=== PATIENT | female | born 1965 | race Caucasian/White ===

== ENCOUNTER 2021-11-12 14:00 | Outpatient (REF) | payer OTHER, SELFPAY ==
--- NOTE | ~2021-11-12 | MM_ITS ---
EXAMINATION: MM SCREENING DIGITAL BREAST TOMOSYNTHESIS, BILATERAL CLINICAL INFORMATION: Screening. Asymptomatic. The lifetime risk of breast cancer based on the Tyrer-Cuzick Model is 8%. COMPARISON: Mammography: 07/14/2019, 07/05/2018, 07/01/2017 TECHNIQUE: Digital breast tomosynthesis is performed in both the craniocaudal and mediolateral oblique views along with computer-aided detection (CAD). Synthesized 2D images are generated from the tomosynthesis. FINDINGS: There are scattered areas of fibroglandular density (ACR BI-RADS breast composition Category b). There are no significant masses, abnormal calcifications, or other abnormalities. Parenchymal pattern is similar to prior studies. There is no developing density or architectural abnormality. The axilla and skin contours are unremarkable. No significant changes. MM/MM tomosynthesis screening BI IMPRESSION: No mammographic evidence of malignancy. ASSESSMENT: BI-RADS 1: Negative RECOMMENDATION: Routine annual mammography screening. This patient's information was entered into a reminder system with a target due date for their next mammogram.
== END 2021-11-12 14:01 | disposition home or self-care (01) ==
LOC: HO.MAMMO 14:00
PROVIDERS: PCP Internal Medicine; Visit Provider Internal Medicine
DX: Z12.31 Encounter for screening mammogram for malignant neoplasm of breast (principal)
CPT/HCPCS: 77063; 77067

== ENCOUNTER 2022-01-29 07:24 | Outpatient (REF) | payer OTHER, SELFPAY ==
[2022-01-29 10:37] LABS: MANUAL DIFF FLAG NO
[2022-01-29 10:40] LABS: Basophils Absolute Auto 0.1 X10*3/uL (0.0-0.2); Basophils Percent Auto 0.9 % (0-2); Eosinophils Absolute Auto 0.5 X10*3/uL (0.0-0.4); Eosinophils Percent Auto 4.8 % (0-4); Hematocrit 41.6 % (37.0-47.0); Hemoglobin 13.4 g/dl (12.0-16.0); Imm Gran Abs Auto 0.03 X10*3/uL (0.00-0.03); Imm Gran Pct Auto 0.3 % (0.0-0.4); Lymphocytes Percent Auto 19.6 % (20-40); Mean Corpuscular HGB Conc 32.2 g/dl (31.0-35.0); Mean Corpuscular Hemoglobin 30.9 pg (27.0-33.0); Mean Corpuscular Volume 95.9 fL (80.0-98.0); Mean Platelet Volume 9.8 fL (9.4-12.3); Monocytes Absolute Auto 0.6 X10*3/uL (0.1-1.2); Monocytes Percent Auto 6.3 % (2-11); Neutrophils Absolute Auto 6.9 x10*3/uL (2.0-8.3); Neutrophils Percent Auto 68.1 % (45-73); Platelet Count 259 X10*3/uL (160-400); Red Blood Count 4.34 X10*6/uL (4.20-5.50); White Blood Count 10.1 X10*3/uL (4.8-10.8)
[2022-01-29 10:49] LABS: Alanine Aminotransferase 20 U/L (0-31); Albumin Level 4.4 g/dL (3.5-5.0); Alkaline Phosphatase 119 U/L (39-117); Anion Gap 11 (12-20); Aspartate Amino Transferase 21 U/L (5-31); Bilirubin Total 0.8 mg/dL (0.0-1.0); Blood Urea Nitrogen 14 mg/dL (9-16); Calcium 9.4 mg/dL (8.4-10.2); Carbon Dioxide 25 mmol/L (22-29); Chloride 108 mmol/L (96-108); Cholesterol 189 mg/dL; Estimated Glomerular Filt Rate > 60; Glucose Fasting 101 mg/dL (60-99); HDL Cholesterol 64 mg/dL; LDL Cholesterol Calculated 111 mg/dl; Potassium 4.4 mmol/L (3.3-5.1); Sodium 140 mmol/L (135-145); Total Protein 6.9 g/dL (6.5-8.0); Triglycerides 72 mg/dL
[2022-01-29 11:07] LABS: Appearance Urine CLEAR; Color Urine YELLOW; Glucose Urine UA NEG (NEG); Leukocyte Esterase Urine NEG (NEG); Nitrite Urine NEG (NEG); Urine Blood TRACE (NEG); Urine Ketones NEG (NEG); Urine Protein NEG (NEG-TRACE)
[2022-01-29 11:31] LABS: RBC Urine 0-2 /HPF (0); Squamous Epithelial Cell Urine TRACE /LPF; WBC Urine 0 /HPF (0-4)
== END 2022-01-29 07:25 | disposition home or self-care (01) ==
LOC: HO.WFDLDS 07:24
PROVIDERS: Visit Provider Internal Medicine
DX: Z00.00 Encounter for general adult medical examination without abnormal findings (principal); D72.820 Lymphocytosis (symptomatic); E78.00 Pure hypercholesterolemia, unspecified
CPT/HCPCS: 36415; 80053; 80061; 81001; 81003; 85025

== ENCOUNTER 2022-02-07 | Outpatient (REF) | payer OTHER, SELFPAY | END 2022-02-07 00:01 | disposition home or self-care (01) | LOC: HO.LNP | PROVIDERS: Visit Provider Internal Medicine | DX: Z13.89 Encounter for screening for other disorder (principal) ==

== ENCOUNTER 2022-11-18 13:41 | Outpatient (REF) | payer OTHER, SELFPAY ==
--- NOTE | ~2022-11-18 | MM_ITS ---
EXAMINATION: MM SCREENING DIGITAL BREAST TOMOSYNTHESIS, BILATERAL CLINICAL INFORMATION: Screening. Asymptomatic. The lifetime risk of breast cancer based on the Tyrer-Cuzick Model is 7%. COMPARISON: Mammography: 11/12/2021, 07/14/2019, 07/05/2018 TECHNIQUE: Digital breast tomosynthesis is performed in both the craniocaudal and mediolateral oblique views along with computer-aided detection (CAD). Synthesized 2D images are generated from the tomosynthesis. FINDINGS: There are scattered areas of fibroglandular density (ACR BI-RADS breast composition Category b). There are no significant masses, abnormal calcifications, or other abnormalities. No architectural abnormality or developing density or significant change from prior studies. The axilla are unremarkable. MM/MM tomosynthesis screening BI IMPRESSION: No mammographic evidence of malignancy. ASSESSMENT: BI-RADS 1: Negative RECOMMENDATION: Routine annual mammography screening. This patient's information was entered into a reminder system with a target due date for their next mammogram.
== END 2022-11-18 13:42 | disposition home or self-care (01) ==
LOC: HO.MAMMO 13:41
PROVIDERS: Visit Provider Internal Medicine
DX: Z12.31 Encounter for screening mammogram for malignant neoplasm of breast (principal)
CPT/HCPCS: 77063; 77067

== ENCOUNTER 2023-02-04 07:31 | Outpatient (REF) | payer OTHER, SELFPAY ==
[2023-02-04 10:46] LABS: MANUAL DIFF FLAG NO
[2023-02-04 10:55] LABS: Basophils Absolute Auto 0.1 X10*3/uL (0.0-0.2); Basophils Percent Auto 1.2 % (0-2); Eosinophils Absolute Auto 0.5 X10*3/uL (0.0-0.4); Eosinophils Percent Auto 5.3 % (0-4); Hematocrit 44.3 % (37.0-47.0); Hemoglobin 14.5 g/dl (12.0-16.0); Imm Gran Abs Auto 0.02 X10*3/uL (0.00-0.03); Imm Gran Pct Auto 0.2 % (0.0-0.4); Lymphocytes Absolute Auto 2.1 X10*3/uL (1.2-4.9); Lymphocytes Percent Auto 22.8 % (20-40); Mean Corpuscular HGB Conc 32.7 g/dl (31.0-35.0); Mean Corpuscular Hemoglobin 31.7 pg (27.0-33.0); Mean Corpuscular Volume 96.7 fL (80.0-98.0); Mean Platelet Volume 9.6 fL (9.4-12.3); Monocytes Absolute Auto 0.7 X10*3/uL (0.1-1.2); Monocytes Percent Auto 7.3 % (2-11); Neutrophils Absolute Auto 5.9 x10*3/uL (2.0-8.3); Neutrophils Percent Auto 63.2 % (45-73); Platelet Count 260 X10*3/uL (160-400); Red Blood Count 4.58 X10*6/uL (4.20-5.50); White Blood Count 9.4 X10*3/uL (4.8-10.8)
[2023-02-04 10:58] LABS: Appearance Urine Clear; Color Urine Yellow; Glucose Urine UA Negative (Negative); Leukocyte Esterase Urine Negative (Negative); Nitrite Urine Negative (Negative); PH 6.5 (5.0-9.0); Urine Blood Negative (Negative); Urine Ketones Negative (Negative); Urine Protein Negative (Neg-Trace)
[2023-02-04 11:00] LABS: Bacteria Urine None Seen (None Seen); Hyaline Casts Urine 0-2 /LPF (0-2); RBC Urine 0-2 /HPF (0-2); Squamous Epithelial Cell Urine 0-2 /HPF (0-2); WBC Urine 0-5 /HPF (0-5)
[2023-02-04 11:19] LABS: Alanine Aminotransferase 24 U/L (0-31); Albumin Level 4.5 g/dL (3.5-5.0); Alkaline Phosphatase 126 U/L (39-117); Anion Gap 12 (12-20); Aspartate Amino Transferase 26 U/L (5-31); Bilirubin Total 0.9 mg/dL (0.0-1.0); Blood Urea Nitrogen 20 mg/dL (9-16); Calcium 9.5 mg/dL (8.4-10.2); Carbon Dioxide 28 mmol/L (22-29); Chloride 107 mmol/L (96-108); Cholesterol 198 mg/dL; Estimated Glomerular Filt Rate > 60; Glucose Fasting 93 mg/dL (60-99); HDL Cholesterol 69 mg/dL; LDL Cholesterol Calculated 118 mg/dl; Potassium 4.4 mmol/L (3.3-5.1); Sodium 143 mmol/L (135-145); Total Protein 6.8 g/dL (6.5-8.0); Triglycerides 59 mg/dL
== END 2023-02-04 07:32 | disposition home or self-care (01) ==
LOC: HO.WFDLDS 07:31
PROVIDERS: Visit Provider Internal Medicine
DX: Z00.00 Encounter for general adult medical examination without abnormal findings (principal); E78.00 Pure hypercholesterolemia, unspecified; D72.820 Lymphocytosis (symptomatic)
CPT/HCPCS: 36415; 80053; 80061; 81001; 85025

== ENCOUNTER 2023-11-25 14:00 | Outpatient (REF) | payer OTHER, SELFPAY | END 2023-11-25 14:01 | disposition home or self-care (01) | LOC: HO.MAMMO 14:00 | PROVIDERS: PCP Internal Medicine; Visit Provider Internal Medicine | DX: Z12.31 Encounter for screening mammogram for malignant neoplasm of breast (principal) | CPT/HCPCS: 77063; 77067 ==

== ENCOUNTER → 2023-11-25 14:15 | Outpatient (BNV) | payer OTHER, SELFPAY | PROVIDERS: PCP Internal Medicine; Visit Provider Radiology Diagnostic Radiology | DX: Z12.31 Encounter for screening mammogram for malignant neoplasm of breast (principal) | CPT/HCPCS: 77063; 77067 ==

== ENCOUNTER 2024-02-04 07:23 | Outpatient (REF) | payer OTHER, SELFPAY ==
[2024-02-04 11:23] LABS: MANUAL DIFF FLAG NO
[2024-02-04 11:27] LABS: Appearance Urine Clear; Color Urine Yellow; Glucose Urine UA Negative (Negative); Leukocyte Esterase Urine Negative (Negative); Nitrite Urine Negative (Negative); PH 6.5 (5.0-9.0); Specific Gravity - Urine 1.015 (1.005-1.025); Urine Blood Negative (Negative); Urine Ketones Negative (Negative); Urine Protein Negative (Neg-Trace)
[2024-02-04 11:39] LABS: Bacteria Urine None Seen (None Seen); Hyaline Casts Urine 0-2 /LPF (0-2); RBC Urine 0-2 /HPF (0-2); Squamous Epithelial Cell Urine 0-2 /HPF (0-2); WBC Urine 0-5 /HPF (0-5)
[2024-02-04 11:42] LABS: Basophils Absolute Auto 0.1 X10*3/uL (0.0-0.2); Basophils Percent Auto 1.2 % (0-2); Eosinophils Absolute Auto 0.6 X10*3/uL (0.0-0.4); Hematocrit 42.5 % (37.0-47.0); Hemoglobin 13.8 g/dl (12.0-16.0); Imm Gran Abs Auto 0.02 X10*3/uL (0.00-0.03); Imm Gran Pct Auto 0.2 % (0.0-0.4); Lymphocytes Absolute Auto 2.1 X10*3/uL (1.2-4.9); Lymphocytes Percent Auto 23.8 % (20-40); Mean Corpuscular HGB Conc 32.5 g/dl (31.0-35.0); Mean Corpuscular Hemoglobin 31.7 pg (27.0-33.0); Mean Corpuscular Volume 97.5 fL (80.0-98.0); Mean Platelet Volume 9.7 fL (9.4-12.3); Monocytes Absolute Auto 0.7 X10*3/uL (0.1-1.2); Monocytes Percent Auto 8.3 % (2-11); Neutrophils Absolute Auto 5.2 x10*3/uL (2.0-8.3); Neutrophils Percent Auto 59.5 % (45-73); Platelet Count 251 X10*3/uL (160-400); Red Blood Count 4.36 X10*6/uL (4.20-5.50); White Blood Count 8.7 X10*3/uL (4.8-10.8)
[2024-02-04 12:04] LABS: Alanine Aminotransferase 18 U/L (0-31); Albumin Level 4.4 g/dL (3.5-5.0); Alkaline Phosphatase 126 U/L (39-117); Anion Gap 8 (12-20); Aspartate Amino Transferase 20 U/L (5-31); Bilirubin Total 0.6 mg/dL (0.0-1.0); Blood Urea Nitrogen 17 mg/dL (9-16); Calcium 9.4 mg/dL (8.4-10.2); Carbon Dioxide 29 mmol/L (22-29); Chloride 107 mmol/L (96-108); Cholesterol 180 mg/dL (<200); Estimated Glomerular Filt Rate > 60; Glucose Fasting 91 mg/dL (60-99); HDL Cholesterol 65 mg/dL (>40); LDL Cholesterol Calculated 102 mg/dL (<100); Potassium 4.3 mmol/L (3.3-5.1); Sodium 140 mmol/L (135-145); Triglycerides 67 mg/dL (<150)
== END 2024-02-04 07:24 | disposition home or self-care (01) ==
LOC: HO.WFDLDS 07:23
PROVIDERS: Visit Provider Internal Medicine
DX: Z00.00 Encounter for general adult medical examination without abnormal findings (principal); D72.820 Lymphocytosis (symptomatic); E78.00 Pure hypercholesterolemia, unspecified
CPT/HCPCS: 36415; 80053; 80061; 81001; 85025

== ENCOUNTER 2024-12-06 14:09 | Outpatient (REF) | payer OTHER, SELFPAY ==
--- OUTSIDE RECORDS SUMMARY | 2024-12-06 15:11 | XMS_ITS ---
Author Organization Darell Casas MD Address [address] [place] [phone] Care Team Providers Care Fitness Leader Name Role Phone Darell Casas Primary Care Provider [phone] REASON FOR VISIT yearly labs Encounters Encounter Location Date Provider Diagnosis Darell Casas MD [address] [place] [phone] 02/05/2024 Darell Casas Blood tests for rout ine general physical examination Z00.00 ; Lymphocytosis D72.820 and Pure hypercholesterolemia E78.00 Assessments Encounter Date Diagnosis (ICD Code) Assessment Notes Treatment Notes Treatment Clinical Notes Section Notes 02/05/2024 Blood tests for rout ine general physical examination (ICD-10 - Z00.00) 02/05/2024 Lymphocytosis (ICD-1 0 - D72.820) 02/05/2024 Pure hypercholesterolemia (ICD-10 - E78.00) Plan Of Treatment Next Appt Details Provider Name:Darell enriquez, 02/10/2025 07:15:00 AM, [address] [facility], Suite [facility], [place], [place], [phone], Provider Name:Darell enriquez, 02/16/2025 01:00:00 PM, [address] [facility], [address], [place], [place], [phone], Progress Notes * Luz MELISSA MDOB:1964 (59 yo F)Acc No.[id number]:02/05/2024 Progress Note Patient:?Luz MELISSA Provider:?Darell Casas MD :1965???Age:58 Y???Sex:Female D ate:02/05/2024 Address:[address] [place], [place] [phone] Subjective: * Chief Complaints: * ???1. Yearly labs. * Medical History:? Objective: * Vitals:? Assessment: * Assessment: 1.?Blood tests for routine g eneral physical examination - Z00.00 (Primary)???2.?Lymphocytosis - D72.820???3.?Pure hypercholesterolemia - E78.00??? Plan: * Treatment: 2.?Lymphocytosis?LAB: Complete Blood Count Auto Diff (Order Cancelled) ?LAB: Comprehensive [place]. Panel Fast (Order Cancelled) ?LAB: Lipid Panel (Order Cancelled) ?LAB: UA ClnCatch+Micro w/rflx Cult (Order Cancelled) 3.?Pure hypercholesterolemia ?LAB: Complete Blood Count Auto Diff (Order Cancelled) ?LAB: Comprehensive [place]. Panel Fast (Order Cancelled) ?LAB: Lipid Panel (Order Cancelled) ?LAB: UA ClnCatch+Micro w/rflx Cult (Order Cancelled) * * The named appointment provid er may or may not be the originator of this progress note, and it is not deemed complete until electronically signed by the appointment provider. Sign off status: Pending * Provider:?Darell Casas MD Date:?0 02/05/2024 Generated for Hakan frazier/[place]/eTransmitting on:?12/06/2024 03:11 PM EST
--- OUTSIDE RECORDS SUMMARY | 2024-12-06 15:11 | XMS_ITS | Patient Health Record ---
Author Organization Darell Casas MD Address [address] [place] [phone] Care Team Providers Care Dry Room Attendant Name Role Phone Darell Casas Primary Care Provider Allergies No Known Allergies Results Component Value Reference Range Notes Occult Blood, Stool, Guaiac Reviewed date:02/12/2024 02:07:05 PM Interpretation:Negative Performing Lab: Notes/Report: Negative Occult Blood, Stool, Guaiac Neg Complete Blood Count Auto Di ff Reviewed date:02/04/2024 05:36:29 PM Interpretation: Performing Lab:[facility], [address] [place] [phone] Notes/Report: White Blood Count 8.7 4.8-10.8 X10*3/uL Red Blood Count 4.36 4.20-5.50 X10*6/uL Hemoglobin 13.8 12.0-16.0 g/dl Hematocrit 42.5 37.0-47.0 % Mean Corpuscular Volume 97.5 80.0-98.0 fL Mean Corpuscular Hemoglobin 31.7 27.0-33.0 pg Mean Corpuscular HGB Conc 32.5 31.0-35.0 g/dl Red Cell Distribution Width 12.0 11.0-16.0 % Platelet Count 251 160-400 X10*3/uL Mean Platelet Volume 9.7 9.4-12.3 fL Neutrophils Percent Auto 59.5 45-73 % Imm Gran Pct Auto 0.2 0.0-0.4 % Lymphocytes Percent Auto 23.8 20-40 % Monocytes Percent Auto 8.3 2-11 % Eosinophils Percent Auto 7.0 0-4 % Basophils Percent Auto 1.2 0-2 % NRBC Pct Auto 0.0 0.0-0.2 /100WBC Neutrophils Absolute Auto 5.2 2.0-8.3 x10*3/u L Imm Gran Abs Auto 0.02 0.00-0.03 X10*3/uL Lymphocytes Absolute Auto 2.1 1.2-4.9 X10*3/u L Monocytes Absolute Auto 0.7 0.1-1.2 X10*3/uL Eosinophils Absolute Auto 0.6 0.0-0.4 X10*3/u L Basophils Absolute Auto 0.1 0.0-0.2 X10*3/uL NRBC Abs Auto 0.000 0.0-0.012 X10*3/uL Comprehensive [place]. Panel Fa st Reviewed date:02/04/2024 05:19:06 PM Interpretation: Performing Lab:[facility], [address] [place] [phone] Notes/Report: Sodium 140 135-145 mmol/L Potassium 4.3 3.3-5.1 mmol/L Chloride 107 96-108 mmol/L Carbon Dioxide 29 22-29 mmol/L Anion Gap 8 12-20 Blood Urea Nitrogen 17 9-16 mg/dL Creatinine 0.73 0.5-1.4 mg/dL Estimated Glomerular Filt Rate > 60 NOTE: For -Malaysian individuals, multiply the result by 1.210. Chronic Kidney Disease: Estimated GFR < 60 mL/min/1.73m2 Severe Kidney Disease: Estimated GFR < 15 mL/min/1.73m2 Glucose Fasting 91 60-99 mg/dL Calcium 9.4 8.4-10.2 mg/dL Bilirubin Total 0.6 0.0-1.0 mg/dL Aspartate Amino Transferase 20 5-31 U/L Alanine Aminotransferase 18 0-31 U/L Total Protein 7.0 6.5-8.0 g/dL Albumin Level 4.4 3.5-5.0 g/dL Alkaline Phosphatase 126 39-117 U/L Lipid Panel Reviewed date:02/04/2024 12:45:31 PM Interpretation: Performing Lab:[facility], [address] [place] [phone] Notes/Report: Triglycerides 67 <150 mg/dL Desirable Triglyceride: less than 150 mg/dL Borderline High Triglyceride 150-199 mg/dL High Triglyceride: 200-499 mg/dL Very High Triglyceride: greater than or equal to 5OO mg/dL Cholesterol 180 <200 mg/dL Desirable Cholesterol: less than 200 mg/dL Borderline High Cholesterol: 200-239 mg/dL High Cholesterol: greater than 239 mg/dL LDL Cholesterol Calculated 102 <100 mg/dL Desirable LDL: less than 100 mg/dL Near Optimal/Above Optimal LDL: 110-129 mg/dL Borderline High LDL: 130-159 mg/dL High LDL: 160-189 mg/dL Very High LDL: greater than or equal to 190 mg/dL HDL Cholesterol 65 >40 mg/dL Desirable HDL: greater than 40 mg/dL Note: This HDL assay may give artificially low results in patients with liver disease. UA ClnCatch+Micro w/rflx Cul t Reviewed date:02/04/2024 12:52:37 PM Interpretation: Performing Lab:[facility], [address] [place] [phone] Notes/Report: [id number] Urine, Clean Catch Color Urine Yellow Appearance Urine Clear PH 6.5 5.0-9.0 Glucose Urine UA Negative Negative mg/dL Urine Blood Negative Negative Specific [place] - Urine 1.015 1.005-1.025 Urine Protein Negative Neg-Trace mg/dL Urine Ketones Negative Negative mg/dL Nitrite Urine Negative Negative Leukocyte Esterase Urine Negative Negative RBC Urine 0-2 0-2 /HPF WBC Urine 0-5 0-5 /HPF Squamous Epithelial Cell Urine 0-2 0-2 /HPF Bacteria Urine None Seen None Seen Hyaline Casts Urine 0-2 0-2 /LPF Reason For Referral No Information Medications Medication SIG (Take, Route, Frequency, Duration) Notes Start Date End Date Status Atorvastatin Calcium 40 mg TAKE 1 TABLET DAILY Active Albuterol Sulfate HFA 108 (90 Base) MCG/ACT USE 1 INHALATION EVERY 4 HOURS NEEDED Active Breo Ellipta 200-25 MCG/INH 1 puff Inhalation Once a day 09/18/2016 Not-Taking Fluticasone-Salmeterol 100-50 MCG/ACT USE 1 INHALATION TWICE A DAY Active Ventolin HFA 108 (90 Base) MCG/ACT use 2 inhalations every 4 to 6 hours as needed Inhalation every 4 hrs for 90 days Not-Taking Clobetasol Propionate 0.05 % 1 application to affected area Externally Twice a day for 90 days 06/16/2013 Not-Taking Immunizations Vaccine Route Administration Date Status Comme nts SARS-COV-2 Pfizer Unknown 03/10/2021 Administered SARS-COV-2 Pfizer Unknown 03/31/2021 Administered SARS-COV-2 Pfizer Unknown 10/28/2021 Administered [facility] DECLINED, PNEUMO Unknown 08/08/2014 Refused DECLINED, FLU Unknown 08/08/2014 Refused Flu Vaccine Unknown 09/03/2015 Refused Fluarix Quadrivalent Unknown 10/01/2017 Refused Fluarix Quadrivalent Unknown 12/20/2020 Refused Social History Tobacco Use: Social History Observation Description Date Details (start date - stop date) Former Smoker NA - NA Tobacco Use/Smoking Question Answer Notes Patient is a former smoker How long has it been since y ou last smoked? > 10 years Additional Findings: Tobacco Non-User Fo rmer smoker, currently using no form of tobacco Alcohol Screen Question Answer Notes Did you have a drink contain ing alcohol in the past year? Yes How often did you have a dri nk containing alcohol in the past year? Monthly or less (1 point) How many drinks did you have on a typical day when you were drinking in the past year? 1 or 2 drinks (0 point) How often did you have 6 or more drinks on one occasion in the past year? Never (0 point) Points 1 Interpretation Negative Problems Problem Type SNOMED Code ICD Code Onset Dates Problem Status W/U Status Risk Notes Problem Pure hypercholesterolemia (685680512) Pure hypercholesterolemia (E78.0) Active confirmed Problem 65247757 Lymphocytosis (D72.820) Active confirmed Problem 764656658 Mild intermitten t asthma without complication (J45.20) Active confirmed Problem 342261253 History of hemat uria (Z87.448) Active confirmed Problem 561210190 Pure hypercholesterolemia (E78.00) Active confirmed Problem 64268664 Elevated cholest margaret (E78.00) Active confirmed Problem 573645220 Elevated serum cholesterol (E78.9) Active confirmed Vital Signs Blood pressure diastolic 60 mm Hg 02/12/2024 remigio ght is up 5 pounds since 02-10-23 Height 63 in 02/12/2024 weight is up 5 pounds since 02-10-23 Blood pressure systolic 102 mm Hg 02/12/2024 weig ht is up 5 pounds since 02-10-23 Weight 128 lbs 02/12/2024 weight is up 5 pounds since 02-10-23 BMI 22.67 kg/m2 02/12/2024 weight is up 5 pounds since 02-10-23 Encounters Encounter Location Date Provider Diagnosis Darell Casas MD [address] [place] [address] Drive [address] [place], [place] [phone] 02/12/2024 Darell Casas Mild intermittent asthma without complication J45.20 ; Annual physical exam Z00.00 ; History of hematuria Z87.448 ; Elevated cholesterol E78.00 ; Lymphocytosis D72.820 ; Colon cancer screening Z12.11 and Depression screening Z13.31 Assessments Encounter Date Diagnosis (ICD Code) Assessment Notes Treatment Notes Treatment Clinical Notes Section Notes 02/12/2024 Mild intermittent asthma without complication (ICD-10 - J45.20) stable, will continue current regimenbt, patient also verb;aized understanding of addional medication and directions for use 02/12/2024 Annual physical exam (ICD-10 - Z00.00) labs reviewed and discussed with patient 02/12/2024 History of hematuria (ICD-10 - Z87.448) has resolved 02/12/2024 Elevated cholesterol (ICD-10 - E78.00) doing well on med, will continue current regiment 02/12/2024 Lymphocytosis (ICD-10 - D72.820) has resolved 02/12/2024 Colon cancer screening (ICD-10 - Z12.11) guaiac negative 02/12/2024 Depression screening (ICD-10 - Z13.31) negative screen Plan Of Treatment Pending Test Test Name Order Date Electrocardiogram (EKG) 09/18/2016 Electrocardiogram (EKG) 10/21/2018 Next Appt Details Provider Name:Darell enriquez, 02/10/2025 07:15:00 AM, [address], [address], [place], [phone], Provider Name:Darell enriquez, 02/16/2025 01:00:00 PM, [address], [address], [place], [phone], Insurance Providers Payer Name Payer Address Payer Phone Subscriber Number Group Number Insured Name Patient Relationship to Insured Coverage Start Date Coverage End Date MANNY ROSA [address] [place] [phone] [id number] Luz Melissa Self - patient is the insured Medical (General) History Medical History History ICD Code 06/16/13 - pelvic exam & mammo 6 months a go; pap 11/2013 Dr. Karen Dasilva 01/2013 - cysto; negative 10/2018 - refused colonoscopy 2021 refuse d colonoscopy
--- OUTSIDE RECORDS SUMMARY | 2024-12-06 15:11 | XMS_ITS ---
Author Organization Darell Casas MD Address [address] [place] [phone] Care Team Providers Care Jail Manager Name Role Phone Darell Casas Primary Care Provider [phone] Allergies No Known Allergies Results Component Value Reference Range Notes Occult Blood, Stool, Guaiac Reviewed date:02/12/2024 02:07:05 PM Interpretation:Negative Performing Lab: Notes/Report: Negative Occult Blood, Stool, Guaiac Neg REASON FOR VISIT annual visit, No Covid symptoms Medications Medication SIG (Take, Route, Frequency, Duration) Notes Start Date End Date Status Atorvastatin Calcium 40 mg TAKE 1 TABLET DAILY Active Albuterol Sulfate HFA 108 (90 Base) MCG/ACT USE 1 INHALATION EVERY 4 HOURS NEEDED Active Breo Ellipta 200-25 MCG/INH 1 puff Inhalation Once a day 09/18/2016 Not-Taking Advair Diskus 100-50 MCG/ACT 1 puff Inhalation Twice a day for 30 days 02/12/2024 Active Clobetasol Propionate 0.05 % 1 application to affected area Externally Twice a day for 90 days 06/16/2013 Not-Taking Ventolin HFA 108 (90 Base) MCG/ACT use 2 inhalations every 4 to 6 hours as needed Inhalation every 4 hrs for 90 days Not-Taking Social History Tobacco Use: Social History Observation [...] Never (0 point) Points 1 Interpretation Negative Vital Signs Blood pressure systolic 102 mm Hg 02/12/20 24 Blood pressure diastolic 60 mm Hg 024 Height 63 in 02/12/2024 Weight 128 lbs 02/12/2024 BMI 22.67 kg/m2 02/12/2024 weight is up 5 pounds since 02-10-23 Encounters Encounter Location Date Provider Diagnosis Darell Casas MD [address] [place] [address] [place] [phone] 02/12/2024 Darell Casas Mild intermittent asthma without [...] - Z13.31) negative screen Plan Of Treatment Medication Medication Name Sig Start Date Stop Date Notes Atorvastatin Calcium 40 mg TAKE 1 TABLET DAILY Albuterol Sulfate HFA 108 (9 0 Base) MCG/ACT USE 1 INHALATION EVERY 4 HOURS NEEDED Advair Diskus 100-50 MCG/ACT 1 puff Inha lation Twice a day for 30 days 02/12/2024 Treatment Notes Assessment Notes Mild intermittent asthma wit hout complication stable, will continue current regimenbt, patient also verb;aized understanding of addional medication and directions for use Annual physical exam labs reviewed and d iscussed with patient History of hematuria has resolved Elevated cholesterol doing well on med, will continue current regiment Lymphocytosis has resolved Colon cancer screening guaiac negative Depression screening negative screen Next Appt Details Follow Up: 1 Year, Reason: Provider Name:Darell enriquez, 02/10/2025 07:15:00 AM, [address] [place] [address], [address], [phone], Provider Name:Darell enriquez, 02/16/2025 01:00:00 PM, [address] [place] [address], [place] [address], [place], [place], [phone], Progress Notes * Luz MELISSA MDOB:1964 (58 yo F)Acc No.[id number]:02/12/2024 Progress Notes Patient:?Luz Melissa Provider:?Darell Casas MD :1965???Age:58 Y???Sex:Female D ate:02/12/2024 Address:[address] [place], [place] [phone] Subjective: * Chief Complaints: * ???Annual visitNo Covid symp toms * HPI: ???Depression Screening:?PHQ-9?Little interest or pleasure in doing things?Not at all,?Feeling down, depressed, or hopeless?Not at all,?Trouble falling or staying asleep, or sleeping too much?Not at all,?Feeling tired or having little energy?Not at all,?Poor appetite or overeating?Not at all,?Feeling bad about yourself or that you are a failure, or have let yourself or your family down?Not at all,?Trouble concentrating on things, such as reading the newspaper or watching television?Not at all,?Moving or speaking so slowly that other people could have noticed; or the opposite, being so fidgety or restless that you have been moving around a lot more than usual?Not at all,?Thoughts that you would be better off or of hurting yourself in some way?Not at all,?Total Score?0.?Interpretation and Intervention?Depression Screening Findings?Negative,?Follow-Up for Depression?: review of PHQ-9 found negative result, no follow-up needed.? patient is a 58 yo female here for yearly visit with review of recent labs and follow up pf chronic issues. / using inhaler 2 times a day. ???Communication Needs:?Communication Needs?Does the patient have a hearing impairment?No,?Does the patient have a vision impairment??Yes,?If yes, what is the vision impairment??Glasses,?Does the patient have a cognition impairment??No.?Fall Risk:?History?Have you had any falls with injury in the past year??No,?Have you had two or more falls in the past year??No.?SDOH Questions:?SDOH Questions?In the past year have you been worried about losing housing??No,?In the past year have you or any family members you live with been unable to get any of the following when it was really needed? Check all that apply:?None.? * ROS:?General/Constitutional:?Change in appetite?denies.?Denies?Chills,?denies.?Denies?Fatigue.?Admits?Fever,?denies.?Ophthalmologic:?Blurred vision?denies.?Discharge?denies.?Pain?denies.?ENT:?Decreased hearing?denies.?Denies?Sore throat,?denies.?Swollen glands?denies.?Endocrine:?Cold intolerance?denies.?Excessive thirst?denies.?Heat intolerance?denies.?Weight loss?denies.?Respiratory:?Denies?Cough,?denies.?Denies?Shortness of breath at rest,?denies.?Denies?Shortness of breath with exertion,?denies.?Wheezing?denies.?Cardiovascular:?Chest pain at rest?denies.?Chest pain with exertion?denies.?Irregular heartbeat?denies.?Shortness of breath?denies.?Gastrointestinal:?Abdominal pain?denies.?Change in bowel habits?denies.?Denies?Diarrhea,?denies.?Denies?Nausea,?denies.?Rectal bleeding?denies.?Vomiting?denies .?Genitourinary:?Blood in urine?denies.?Difficulty urinating?denies.?Frequent urination?denies.?Urinary incontinence?Denies.?Musculoskeletal:?Painful joints?denies.?Weakness?denies.?Skin:?Dry skin?denies.?Itching?denies.?Denies?Mole(s),? changes in moles, new moles or any lesions of concern.?Denies?Photosensitivity.?Rash?denies.?Neurologic:?Dizziness?denies.?Fainting?denies.?Headache?denies.? * Medical History:? * Surgical History:? * Hospitalization/Major Diagno stic Procedure:? * Family History:?Father: rochelle decker 82 yrs, diagnosed with Hypertension, Diabetes.?Mother: alive 78 yrs.?1 brother(s) . .? FATHER-CVA- 2004 Mother-Healthy, Denies mental health/substance abuse family history, Denies mental health/substance abuse family history, No pertinent family medical history, No pertinent family medical history, Denies mental health/substance abuse family history. * Social History:?Tobacco Use:?Tobacco Use/Smoking?Patient is a?former smoker,?How long has it been since you last smoked??> 10 years,?Additional Findings: Tobacco Non-User?Former smoker, currently using no form of tobacco.?Drugs/Alcohol:?Alcohol Screen?Did you have a drink containing alcohol in the past year??Yes,?How often did you have a drink containing alcohol in the past year??Monthly or less (1 point),?How many drinks did you have on a typical day when you were drinking in the past year??1 or 2 drinks (0 point),?How often did you have 6 or more drinks on one occasion in the past year??Never (0 point),?Points?1,?Interpretation?Negative.?Miscellaneous:?Exercise: yes, cardio walks sit ups. Home smoke detector use: yes. Marital status: . Occupation: weeks/months/years, works full-time. Pets: none. no Travel outside of the [place]. * Medications:?TakingAtorvasta tin Calcium 40 mg Tablet TAKE 1 TABLET DAILY Albuterol Sulfate HFA 108 (90 Base) MCG/ACT Aerosol Solution USE 1 INHALATION EVERY 4 HOURS NEEDED Taking Atorvastatin Calcium 40 mg Tablet TAKE 1 TABLET DAILY Taking Albuterol Sulfate HFA 108 (90 Base) MCG/ACT Aerosol Solution USE 1 INHALATION EVERY 4 HOURS NEEDED Not-Taking/PRNClobetasol Propionate 0.05 % Cream 1 application to affected area Externally Twice a dayVentolin HFA 108 (90 Base) MCG/ACT Aerosol Solution use 2 inhalations every 4 to 6 hours as needed Inhalation every 4 hrsBreo Ellipta 200- 25 MCG/INH Aerosol Powder Breath Activated 1 puff Inhalation Once a dayMedication List reviewed and reconciled with the patientNot-Taking/PRN Clobetasol Propionate 0.05 % Cream 1 application to affected area Externally Twice a dayNot-Taking/PRN Ventolin HFA 108 (90 Base) MCG/ACT Aerosol Solution use 2 inhalations every 4 to 6 hours as needed Inhalation every 4 hrsNot-Taking/PRN Breo Ellipta 200-25 MCG/INH Aerosol Powder Breath Activated 1 puff Inhalation Once a dayMedication List reviewed and reconciled with the patient * Allergies:?N.K.D.A.yes[Aller gies Verified] Objective: * Vitals:?Ht: 63, Wt:128, BMI: 22.67, BP:102/60 weight is up 5 pounds since 02-10-23. * ???Past Orders: ???Lab:Lipid Panel (Order Da te 02/04/2024) (Collection Date - 02/04/2024) ? Value Reference Range ?Triglycerides 67 <150 - mg/dL ?Cholesterol 180 <200 - m g/dL ?LDL Cholesterol Calculated 102 H <100 - mg/dL ?HDL Cholesterol 65 >40 - mg/dL ???Lab:UA ClnCatch+Micro w/r flx Cult (Order Date - 02/04/2024) (Collection Date - 02/04/2024) ? Value Reference Range ?Color Urine Yellow - ?Appearance Urine Clear - ?PH 6.5 5.0-9.0 - ?Glucose Urine UA Negative Neg ative - mg/dL ?Urine Blood Negative Negative - ?Specific Meridian - Urine 1.015 1.005-1.025 - ?Urine Protein Negative Neg-Tr andrews - mg/dL ?Urine Ketones Negative Negati ve - mg/dL ?Nitrite Urine Negative Negati ve - ?Leukocyte Esterase Urine Negative Negative - ?RBC Urine 0-2 0-2 - /HPF ?WBC Urine 0-5 0-5 - /HPF ?Squamous Epithelial Cell Urine 0-2 0-2 - /HPF ?Bacteria Urine None Seen None Seen - ?Hyaline Casts Urine 0-2 0-2 - /LPF ???Lab:Complete Blood Count Auto Diff (Order Date - 02/04/2024) (Collection Date - 02/04/2024) ? Value Reference Range ?White Blood Count 8.7 4. 8-10.8 - X10*3/uL ?Red Blood Count 4.36 4.20 -5.50 - X10*6/uL ?Hemoglobin 13.8 12.0-16.0 - g/dl ?Hematocrit 42.5 37.0-47.0 - % ?Mean Corpuscular Volume 97.5 80.0-98.0 - fL ?Mean Corpuscular Hemoglobin 31.7 27.0-33.0 - pg ?Mean Corpuscular HGB Conc 32.5 31.0-35.0 - g/dl ?Red Cell Distribution Width 12.0 11.0-16.0 - % ?Platelet Count 251 160-4 00 - X10*3/uL ?Mean Platelet Volume 9.7 9.4-12.3 - fL ?Neutrophils Percent Auto 59.5 45-73 - % ?Imm Gran Pct Auto 0.2 0. 0-0.4 - % ?Lymphocytes Percent Auto 23.8 20-40 - % ?Monocytes Percent Auto 8.3 2-11 - % ?Eosinophils Percent Auto 7.0 H 0-4 - % ?Basophils Percent Auto 1.2 0-2 - % ?NRBC Pct Auto 0.0 0.0-0. 2 - /100WBC ?Neutrophils Absolute Auto 5.2 2.0-8.3 - x10*3/uL ?Imm Gran Abs Auto 0.02 0. 00-0.03 - X10*3/uL ?Lymphocytes Absolute Auto 2.1 1.2-4.9 - X10*3/uL ?Monocytes Absolute Auto 0.7 0.1-1.2 - X10*3/uL ?Eosinophils Absolute Auto 0.6 H 0.0-0.4 - X10*3/uL ?Basophils Absolute Auto 0.1 0.0-0.2 - X10*3/uL ?NRBC Abs Auto 0.000 0.0-0. 012 - X10*3/uL ???Lab:Comprehensive Sunol. P anabel Fast (Order Date - 02/04/2024) (Collection Date - 02/04/2024) ? Value Reference Range ?Sodium 140 135-145 - mmo l/L ?Bilirubin Total 0.6 0.0- 1.0 - mg/dL ?Aspartate Amino Transferase 20 5-31 - U/L ?Alanine Aminotransferase 18 0-31 - U/L ?Total Protein 7.0 6.5-8. 0 - g/dL ?Albumin Level 4.4 3.5-5. 0 - g/dL ?Alkaline Phosphatase 126 H 39-117 - U/L ?Potassium 4.3 3.3-5.1 - mmol/L ?Chloride 107 96-108 - mm ol/L ?Carbon Dioxide 29 22-29 - mmol/L ?Anion Gap 8 L 12-20 - ?Blood Urea Nitrogen 17 H 9-16 - mg/dL ?Creatinine 0.73 0.5-1.4 - mg/dL ?Estimated Glomerular Filt Rate > 60 - ?Glucose Fasting 91 60-9 9 - mg/dL ?Calcium 9.4 8.4-10.2 - m g/dL * Examination: ???General Examination: ?GENERAL APPEARANCE:?well developed, well nourished, in no acute distress.?HEAD:?normocephalic, atraumatic.?EYES:?pupils equal, round, reactive to light and accommodation, sclera non-icteric.?EARS:?normal.?ORAL CAVITY:?mucosa moist.?THROAT:?clear.?NECK/THYROID:?neck supple, full range of motion, no cervical lymphadenopathy, no bruits.?SKIN:?warm and dry, no suspicious lesions.?HEART:?regular rate and rhythm, S1, S2 normal, no murmurs.?LUNGS:?clear to auscultation bilaterally.?BREASTS:?No mass, no lump.?ABDOMEN:?soft, nontender, nondistended, bowel sounds present, normal, no organomegaly , no masses palpable.?RECTAL EXAM:?stool guaiac negative, no masses palpable.?FEMALE GENITOURINARY:?order packer or packager in room, adnexa nontender, ovaries not enlarged.?EXTREMITIES:?no clubbing, cyanosis, or edema.?NEUROLOGIC:?nonfocal, motor strength normal upper and lower extremities, sensory exam intact.? Assessment: * Assessment: 1.?Annual physical exam - Z0 0.00 (Primary)?2.?Mild intermittent asthma without complication - J45.20?3.?History of hematuria - Z87.448?4.?Elevated cholesterol - E78.00?5.?Lymphocytosis - D72.820?6.?Colon cancer screening - Z12.11?7.?Depression screening - Z13.31? Plan: * Treatment: 2.?Mild intermittent asthma without complication? Start Advair Diskus Aerosol Powder Breath Activated, 100-50 MCG/ACT, 1 puff, Inhalation, Twice a day, 30 days, 1, Refills 6;?Continue Albuterol Sulfate HFA Aerosol Solution, 108 (90 Base) MCG/ACT, USE 1 INHALATION EVERY 4 HOURS NEEDED.?? Notes: stable, will continue current regimenbt, patient also verb;aized understanding of addional medication and directions for use.?? 3.?History of hematuria? Notes: has resolved.?? 4.?Elevated cholesterol? Continue Atorvastatin Calcium Tablet, 40 mg, TAKE 1 TABLET DAILY.?? Notes: doing well on med, will continue current regiment.?? 5.?Lymphocytosis? Notes: has resolved.?? 6.?Colon cancer screening?LAB: Occult Blood, Stool, Guaiac?Negative ? Value Reference Range ?Occult Blood, Stool, Guaiac Neg Notes: guaiac negative.??7.?Depression screening? Notes: negative screen.?? * Procedure Codes:?52731 TEST FOR BLOOD, FECES * Follow Up:?1 Year * * Sign off status: Completed true * Provider:?Darell Casas MD Date:?0 02/12/2024 Generated for Hakan frazier/Alton/Senaititting on:?12/06/2024 03:11 PM EST History and Physical Notes * HPI (History of Present Illness) Category Sub-Category Detail Notes Category Not es Depression Screening PHQ-9 Little inte rest or pleasure in doing things: Not at all patient is a 58 yo female here for yearly visit with review of recent labs and follow up pf chronic issues. / using inhaler 2 times a day. Feeling down, depressed, or hopeless: No t at all Trouble falling or staying asleep, or sl eeping too much: Not at all Feeling tired or having little energy: N ot at all Poor appetite or overeating: Not at all Feeling bad about yourself o r that you are a failure, or have let yourself or your family down: Not at all Trouble concentrating on thi ngs, such as reading the newspaper or watching television: Not at all Moving or speaking so slowly that other people could have noticed; or the opposite, being so fidgety or restless that you have been moving around a lot more than usual: Not at all Thoughts that you would be b freya off or of hurting yourself in some way: Not at all Total Score: 0 Interpretation and Intervention Depression Awilda lafleur Findings: Negative Follow-Up for Depression: : review of PH Q-9 found negative result, no follow-up needed SDOH Questions SDOH Questions In the past year have you been worried about losing housing?: No In the past year have you or any family members you live with been unable to get any of the following when it was really needed? Check all that apply:: None Fall Risk History Have you had any falls with injury i n the past year?: No Have you had two or more falls in the st year?: No Communication Needs Communication Needs Does the patient have a hearing impairment: No Does the patient have a vision impairmen t?: Yes ?If yes, what is the vision impairment?: Glasses Does the patient have a cognition impair ment?: No Examination Category Sub-Category Detail Notes Category Not es General Examination GENERAL APPEARANCE: well dev eloped, well nourished, in no acute distress HEAD: normocephalic, atrau matic EYES: pupils equal, round, reactive to light and accommodation, sclera non- icteric EARS: normal THROAT: clear NECK/THYROID: neck supple, full ra nge of motion, no cervical lymphadenopathy, no bruits HEART: regular rate and rhy thm, S1, S2 normal, no murmurs LUNGS: clear to auscultatio n bilaterally ABDOMEN: soft, nontender, non distended, bowel sounds present, normal, no organomegaly , no masses palpable NEUROLOGIC: nonfocal, motor stre ngth normal upper and lower extremities, sensory exam intact SKIN: warm and dry, no kaitlin picious lesions EXTREMITIES: no clubbing, cyanosi s, or edema BREASTS: No mass, no lump RECTAL EXAM: stool guaiac negativ e, no masses palpable FEMALE GENITOURINARY: order packer or packager in room, adnexa nontender, ovaries not enlarged ORAL CAVITY: mucosa moist
== END 2024-12-06 14:10 | disposition home or self-care (01) ==
LOC: HO.MAMMO 14:09
PROVIDERS: PCP Internal Medicine; Visit Provider Internal Medicine
DX: Z12.31 Encounter for screening mammogram for malignant neoplasm of breast (principal)
CPT/HCPCS: 77063; 77067

== ENCOUNTER → 2024-12-06 14:30 | Outpatient (BNV) | payer OTHER, SELFPAY | PROVIDERS: PCP Internal Medicine; Visit Provider Internal Medicine | DX: Z12.31 Encounter for screening mammogram for malignant neoplasm of breast (principal) | CPT/HCPCS: 77063; 77067 ==

== ENCOUNTER 2025-02-09 07:39 | Outpatient (REF) | payer OTHER, SELFPAY ==
--- OUTSIDE RECORDS SUMMARY | 2025-02-09 07:43 | XMS_ITS | Patient Health Record ---
Author Organization Darell Casas MD Address [address] [place], [place] [phone] Care Team Providers Care Uncrater Name Role Phone Darell Casas Primary Care Provider [phone] Allergies No Known Allergies Results Component Value Reference Range Notes Occult Blood, Stool, Guaiac Reviewed date:02/12/2024 02:07:05 PM Interpretation:Negative Performing Lab: Notes/Report: Negative Occult Blood, Stool, Guaiac Neg MM tomosynthesis screening B I Reviewed date:12/13/2024 04:45:10 PM Interpretation: Performing Lab: Notes/Report: [facility] [place] [address] Mammography Report Signed Patient: Luz Melissa MR#: [id number] : 1965 Acct:[id number] Age/Sex: 59 / F ADM Date: 12/06/24 Loc: HONeetuMAMMO Attending Dr: Darell Casas MD Ordering Physician: Darell Casas MD Results: 1Ne gative Date of Service: 12/06/24 Follow Up: 1 Year From Orig inal Mammogram Procedure(s): MM tomosynthesis screening BI Accession Number(s): [id number] cc: Darell Casas MD EXAMINATION: MM SCREENING DIGITAL BREAST TOMOSYNTHESIS, BILATERAL CLINICAL INFORMATION: Screening. Asymptomatic. COMPARISON: Mammography: Comparison is made with available priors TECHNIQUE: Digital breast mammography with tomosynthesis is performed in both the craniocaudal and mediolateral oblique views along with computer-aided detection (CAD). FINDINGS: The breasts are almost entirely fatty (ACR BI-RADS breast composition Category a). There are no significant masses, abnormal calcifications, or other abnormalities. MM/MM tomosynthesis screening BI IMPRESSION: No mammographic evidence of malignancy. ASSESSMENT: BI-RADS BI-RADS 1 - Negative RECOMMENDATION: Routine annual mammography screening. 1 year F/U This examination should not preclude the clinical evaluation of a suspicious palpable abnormality. This patient's information was entered into a reminder system with a target due date for their next mammogram. Electronically signed by: Tamy Carter DO 12/12/2024 03:31 PM [facility] Dictated By: Tamy Carter DO Signed By: <Electronically signed by Tamy Carter DO in OV> 12/12/24 1531 DD/ 1415 TD/TT: 12/06/24 1430 Candle Wrapper: [facility] [address] [place] [address] Mammography Report Signed Patient: Claire Melissa MR#: [id number] : 1965 Acct:[id number] Age/Sex: 59 / F ADM Date: 12/06/24 Loc: HO.MAMMO Attending Dr: Darell Casas MD Ordering Physician: Darell Casas MD Results: 1Ne gative Date of Service: Follow Up: 1 Year From Orig inal Mammogram Procedure(s): MM marilyn osynthesis screening BI Accession Number(s): [id number] cc: Darell Casas MD EXAMINATION: MM SCREENING DIGITAL BREAST TOMOSYNTHESIS, BILATERAL CLINICAL INFORMATION: Screening. Asymptomatic. COMPARISON: Mammography: Compari son is made with available priors TECHNIQUE: Digital breast mammo graphy with tomosynthesis is performed in both the craniocaudal and med iolateral oblique views along with computer-aided detection (CAD). FINDINGS: The breasts are almo st entirely fatty (ACR BI-RADS breast composition Category a). There are no signifi cant masses, abnormal calcifications, or other abnormalities. M M/MM tomosynthesis screening BI IMPRESSION: No mammographic evid ence of malignancy. ASSESSMENT: BI-RADS BI-RADS 1 - Negative RECOMMENDATION: Routine annual mammo graphy screening. 1 year F/U This examination pearl uld not preclude the clinical evaluation of a suspicious palpable abnormality. This patient's infor mation was entered into a reminder system with a target due date for their next mammogram. Electronically elías d by: Tamy Carter DO 12/12/2024 03:31 PM [facility] Dictated By: Tamy Carter DO Signed By: <Electron ically signed by Tamy Carter DO in OV> 12/12/24 1531 DD/ 1415 TD/TT: 12/06/24 1430 Candle Wrapper: Reason For Referral No Information Medications Medication [...] W/U Status Risk Notes Problem Pure hypercholesterolemia (637145202) Pure hypercholesterolemia (E78.0) Active confirmed Problem 75225952 Lymphocytosis (D72.820) Active confirmed Problem 966205370 Mild intermitten t asthma without complication (J45.20) Active confirmed Problem 128007717 History of hemat uria (Z87.448) Active confirmed Problem 462893869 Pure hypercholesterolemia (E78.00) Active confirmed Problem 92683304 Elevated cholest margaret (E78.00) Active confirmed Problem 119305006 Elevated serum cholesterol (E78.9) Active confirmed Vital [...] Date Provider Diagnosis Darell Casas MD [address] [place], [place] [phone] 02/12/2024 Darell Casas Mild intermittent asthma without [...] 10/21/2018 Next Appt Details Provider Name:Darell enriquez, 02/16/2025 01:00:00 PM, [address] [place] [address], [address], [place], [place], [phone], Insurance Providers Payer Name Payer Address Payer Phone Subscriber Number Group Number Insured Name Patient Relationship to Insured Coverage Start Date Coverage End Date [employer]NY ROSA [address] [place] [phone] [id number] Luz Melissa Self - patient is the insured Medical (General) History Medical History History ICD Code 06/16/13 - pelvic exam & mammo 6 months a go; pap 11/2013 Dr. Karen Dasilva 01/2013 - cysto; negative 10/2018 - refused colonoscopy 2021 refuse d colonoscopy
--- OUTSIDE RECORDS SUMMARY | 2025-02-09 07:43 | XMS_ITS ---
Author Organization Darell Casas MD Address [address] [place] [phone] Care Team Providers Care Change Management Administrator Name Role Phone Darell Casas Primary Care Provider [phone] REASON FOR VISIT yearly labs Encounters Encounter Location Date Provider Diagnosis Darell Casas MD [address] [place] [phone] 02/05/2024 Darell Casas Blood tests for rout [...] Of Treatment Next Appt Details Provider Name:Darell welchr, 02/16/2025 01:00:00 PM, [address], Suite [facility], [place], [place], [phone], Progress Notes * Luz MELISSA MDOB:1964 (59 yo F)Acc No.[id number]:02/05/2024 Progress Note Patient:?Luz MELISSA Provider:?Darell Casas MD :1965???Age:58 Y???Sex:Female D ate:02/05/2024 Address:[address] [place] [address] Subjective: * Chief Complaints: * ???1. Yearly labs. * Medical History:? Objective: * Vitals:? Assessment: * Assessment: 1.?Blood tests for routine g eneral physical examination - Z00.00 (Primary)???2.?Lymphocytosis - D72.820???3.?Pure hypercholesterolemia - E78.00??? Plan: * Treatment: 2.?Lymphocytosis?LAB: Complete Blood Count Auto Diff (Order Cancelled) ?LAB: Comprehensive Jackson. Panel Fast (Order Cancelled) ?LAB: Lipid Panel (Order Cancelled) ?LAB: UA ClnCatch+Micro w/rflx Cult (Order Cancelled) 3.?Pure hypercholesterolemia ?LAB: Complete Blood Count Auto Diff (Order Cancelled) ?LAB: Comprehensive Jackson. Panel Fast (Order Cancelled) ?LAB: Lipid Panel (Order Cancelled) ?LAB: UA ClnCatch+Micro w/rflx Cult (Order Cancelled) * * The named appointment provid er may or may not be the originator of this progress note, and it is not deemed complete until electronically signed by the appointment provider. Sign off status: Pending * Provider:?Darell Casas MD Date:?0 02/05/2024 Generated for Hakan frazier/Alton/Senaititting on:?02/09/2025 07:43 AM EDT
--- OUTSIDE RECORDS SUMMARY | 2025-02-09 07:44 | XMS_ITS ---
Author Organization Darell Casas MD Address [address] [place] [phone] Care Team Providers Care Electrical Systems Designer Name Role Phone Darell Casas Primary Care [...] 02-10-23 Encounters Encounter Location Date Provider Diagnosis Daerll Casas MD [address] [place] [address] [place] [phone] 02/12/2024 Darell Casas Mild intermittent asthma without [...] Up: 1 Year, Reason: Provider Name:Darell enriquez, 02/16/2025 01:00:00 PM, [facility], [address], [phone], Progress Notes * Luz MELISSA MDOB:1964 (58 yo F)Acc No.[id number]:02/12/2024 Progress Notes Patient:?Luz Melissa Provider:?Darell Casas MD :1965???Age:58 Y???Sex:Female D ate:02/12/2024 Address:[address] [place] [address] Subjective: * Chief Complaints: * ???Annual visitNo [...] Diagno stic Procedure:? * Family History:?Father: rochelle e 82 yrs, diagnosed with Hypertension, Diabetes.?Mother: alive [...] * ???Past Orders: ???Lab:Lipid Panel (Order Da 02/04/2024) (Collection Date - 02/04/2024) ? Value Reference Range ?Triglycerides 67 <150 - mg/dL ?Cholesterol 180 <200 - m g/dL ?LDL Cholesterol Calculated 102 H <100 - mg/dL ?HDL Cholesterol 65 >40 - mg/dL ???Lab:UA ClnCatch+Micro w/r flx Cult (Order 02/04/2024) (Collection Date 02/04/2024) ? Value Reference Range ?Color Urine Yellow - ?Appearance Urine Clear - ?PH 6.5 5.0-9.0 - ?Glucose Urine UA Negative Neg ative - mg/dL ?Urine Blood Negative Negative - ?Specific [place] - Urine 1.015 1.005-1.025 - ?Urine Protein [...] ???Lab:Complete Blood Count Auto Diff (Order Date 02/04/2024) (Collection Date - 02/04/2024) ? Value [...] Auto 0.000 0.0-0. 012 - X10*3/uL ???Lab:Comprehensive [place]. 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 Notes: negative screen.?? 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
[2025-02-09 11:08] LABS: MANUAL DIFF FLAG NO
[2025-02-09 11:27] LABS: Basophils Absolute Auto 0.1 X10*3/uL (0.0-0.2); Basophils Percent Auto 1.4 % (0-2); Eosinophils Absolute Auto 0.4 X10*3/uL (0.0-0.4); Eosinophils Percent Auto 5.1 % (0-4); Hematocrit 41.4 % (37.0-47.0); Hemoglobin 13.5 g/dl (12.0-16.0); Imm Gran Abs Auto 0.07 X10*3/uL (0.00-0.03); Lymphocytes Absolute Auto 2.3 X10*3/uL (1.2-4.9); Mean Corpuscular HGB Conc 32.6 g/dl (31.0-35.0); Mean Corpuscular Hemoglobin 31.7 pg (27.0-33.0); Mean Corpuscular Volume 97.2 fL (80.0-98.0); Mean Platelet Volume 9.5 fL (9.4-12.3); Monocytes Absolute Auto 0.7 X10*3/uL (0.1-1.2); Monocytes Percent Auto 9.3 % (2-11); Neutrophils Absolute Auto 3.8 x10*3/uL (2.0-8.3); Neutrophils Percent Auto 51.2 % (45-73); Platelet Count 247 X10*3/uL (160-400); Red Blood Count 4.26 X10*6/uL (4.20-5.50); Red Cell Distribution Width 12.3 % (11.0-16.0); White Blood Count 7.3 X10*3/uL (4.8-10.8)
[2025-02-09 11:40] LABS: Appearance Urine Clear; Color Urine Yellow; Glucose Urine UA Negative (Negative); Leukocyte Esterase Urine Negative (Negative); Nitrite Urine Negative (Negative); PH 6.5 (5.0-9.0); Urine Blood Negative (Negative); Urine Ketones Negative (Negative); Urine Protein Negative (Neg-Trace)
[2025-02-09 11:43] LABS: Alanine Aminotransferase 25 U/L (0-31); Albumin Level 4.4 g/dL (3.5-5.0); Alkaline Phosphatase 111 U/L (39-117); Anion Gap 10 (12-20); Aspartate Amino Transferase 28 U/L (5-31); Bilirubin Total 0.7 mg/dL (0.0-1.0); Blood Urea Nitrogen 21 mg/dL (9-16); Calcium 9.4 mg/dL (8.4-10.2); Carbon Dioxide 28 mmol/L (22-29); Chloride 108 mmol/L (96-108); Cholesterol 207 mg/dL (<200); Estimated Glomerular Filt Rate > 60; Glucose Fasting 94 mg/dL (60-99); HDL Cholesterol 67 mg/dL (>40); LDL Cholesterol Calculated 127 mg/dL (<100); Sodium 142 mmol/L (135-145); Total Protein 6.9 g/dL (6.5-8.0); Triglycerides 69 mg/dL (<150)
[2025-02-09 11:45] LABS: Bacteria Urine None Seen (None Seen); Hyaline Casts Urine 0-2 /LPF (0-2); RBC Urine 0-2 /HPF (0-2); Squamous Epithelial Cell Urine 0-2 /HPF (0-2); WBC Urine 0-5 /HPF (0-5)
== END 2025-02-09 07:40 | disposition home or self-care (01) ==
LOC: HO.WFDLDS 07:39
PROVIDERS: Visit Provider Internal Medicine
DX: Z00.00 Encounter for general adult medical examination without abnormal findings (principal); D72.820 Lymphocytosis (symptomatic); E78.00 Pure hypercholesterolemia, unspecified
CPT/HCPCS: 36415; 80053; 80061; 81001; 85025

== ENCOUNTER 2025-08-24 07:39 | Outpatient (REF) | payer OTHER, SELFPAY ==
--- OUTSIDE RECORDS SUMMARY | 2025-02-10 02:15 | XMS_ITS ---
Author Organization Darell Casas MD Address [address] [place] [phone] Care Team Providers Care Tray Packer Name Role Phone Darell Casas Primary Care Provider REASON FOR VISIT FASTING LABS Encounters Encounter Location Date Provider Diagnosis Darell Casas MD [address] [place] [phone] 02/10/2025 Darell Casas Blood tests for rout ine general physical examination Z00.00 ; Lymphocytosis D72.820 and Pure hypercholesterolemia E78.00 Assessments Encounter Date Diagnosis (ICD Code) Assessment Notes Treatment Notes Treatment Clinical Notes Section Notes 02/10/2025 Blood tests for rout ine general physical examination (ICD-10 - Z00.00) 02/10/2025 Lymphocytosis (ICD-1 0 - D72.820) 02/10/2025 Pure hypercholesterolemia (ICD-10 - E78.00) Plan Of Treatment Pending Test Test Name Order Date Complete Blood Count Auto Diff 5 Comprehensive [place]. Panel Fast 5 Lipid Panel 02/10/2025 UA ClnCatch+Micro w/rflx Cult 02/10/2025 Next Appt Details Provider Name:Darell Vargas ier, 02/12/2026 07:15:00 AM, [address], [address], [place], [place], [phone], Provider Name:Darell Vargas ier, 02/19/2026 01:00:00 PM, [address], [address], [place], [place], [phone], Progress Notes * Luz MELISSA MDOB:1964 (60 yo F)Acc No.[id number]:02/10/2025 Progress Note Patient: Luz SEARS Provider: Robert Casas MD :1965 A ge:59 Y S ex:Female Date:02/10/2025 Address:[address] [place], [place] [phone] Subjective: * Chief Complaints: * 1 . FASTING LABS. * Medical History: Objective: * Vitals: Assessment: * Assessment: 1. B lood tests for routine general physical examination - Z00.00 (Primary) 2 .?Lymphocytosis - D72.820 3 . P ure hypercholesterolemia - E78.00 Plan: * Treatment: 2. L ymphocytosis L AB: Complete Blood Count Auto Diff L AB: Comprehensive [place]. Panel Fast L AB: Lipid Panel L AB: UA ClnCatch+Micro w/rflx Cult 3. P ure hypercholesterolemia L AB: Complete Blood Count Auto Diff L AB: Comprehensive [place]. Panel Fast L AB: Lipid Panel L AB: UA ClnCatch+Micro w/rflx Cult * * The named appointment provid er may or may not be the originator of this progress note, and it is not deemed complete until electronically signed by the appointment provider. Sign off status: Pending * Provider: Robert Casas MD Date: 0 02/10/2025 Generated for Hakan frazier/Al[place]/Senaititting on: 10/24/2024 07:42 AM EST
--- OUTSIDE RECORDS SUMMARY | 2025-02-16 08:00 | XMS_ITS ---
Author Organization Darell Casas MD Address [address] [place] [phone] Care Team Providers Care Clerk Name Role Phone Darell Casas Primary Care Provider Allergies No Known Allergies REASON FOR VISIT ANNUAL EXAM Medications Medication SIG (Take, Route, Frequency, Duration) Notes Start Date End Date Status Fluticasone-Salmeterol 100-50 MCG/ACT USE 1 INHALATION TWICE A DAY Active Clobetasol Propionate 0.05 % 1 application to affected area Externally Twice a day for 90 days 06/16/2013 Not-Taking Atorvastatin Calcium 40 mg TAKE 1 TABLET DAILY Active Breo Ellipta 200-25 MCG/INH 1 puff Inhalation Once a day 09/18/2016 Not-Taking Ventolin HFA 108 (90 Base) MCG/ACT use 2 inhalations every 4 to 6 hours as needed Inhalation every 4 hrs for 90 days Not-Taking Albuterol Sulfate HFA 108 (90 Base) MCG/ACT USE 1 INHALATION EVERY 4 HOURS NEEDED Active Social History Tobacco Use: Social History Observation [...] Interpretation Negative Vital Signs Blood pressure systolic 104 mm Hg 02/17/20 25 Blood pressure diastolic 56 mm Hg 025 Height 63 in 02/16/2025 Weight 128 lbs 02/16/2025 BMI 22.67 kg/m2 02/16/2025 Encounters Encounter Location Date Provider Diagnosis Darell Casas MD [address] [place] [address] [place] [phone] 02/16/2025 Darell Casas Annual physical exam Z00.00 ; Pure hypercholesterolemia E78.00 ; Mild intermittent asthma without complication J45.20 ; Colon cancer screening Z12.11 and Depression screening Z13.31 Assessments Encounter Date Diagnosis (ICD Code) Assessment Notes Treatment Notes Treatment Clinical Notes Section Notes 02/16/2025 Annual physical exam (ICD-10 - Z00.00) labs reviewed and discussed with patient 02/16/2025 Pure hypercholesterolemia (ICD-10 - E78.00) running a little high, will continue current regiment and will continue to monitor 02/16/2025 Mild intermittent as thma without complication (ICD-10 - J45.20) doing well, will continue current regiment 02/16/2025 Colon cancer screeni ng (ICD-10 - Z12.11) guaiac negative 02/16/2025 Depression screening (ICD-10 - Z13.31) negative screen Plan Of Treatment Medication Medication Name Sig Start Date Stop Date Notes Fluticasone-Salmeterol 100-5 0 MCG/ACT USE 1 INHALATION TWICE A DAY Atorvastatin Calcium 40 mg TAKE 1 TABLET DAILY Albuterol Sulfate HFA 108 (9 0 Base) MCG/ACT USE 1 INHALATION EVERY 4 HOURS NEEDED Treatment Notes Assessment Notes Annual physical exam labs reviewed and d iscussed with patient Pure hypercholesterolemia running a chetan le high, will continue current regiment and will continue to monitor Mild intermittent asthma without complic ation doing well, will continue current regiment Colon cancer screening guaiac negative Depression screening negative screen Pending Test Test Name Order Date Liver Panel 02/16/2025 Lipid Panel 02/16/2025 Next Appt Details Follow Up: 1 Year, Reason: Provider Name:Darell Vargas mina, 02/12/2026 07:15:00 AM, [address], [address], [place], [place], [phone], Provider Name:Darell Vargas yurir, 02/19/2026 01:00:00 PM, [address], [address], [place], [place], [phone], Progress Notes * Luz MELISSA MDOB:1964 (59 yo F)Acc No.[id number]:02/16/2025 Progress Notes Patient: Luz SEARS Provider: Robert Casas MD :1965 A ge:59 Y S ex:Female Date:02/16/2025 Address:[address] [place], [place] [phone] Subjective: * Chief Complaints: * A NNUAL EXAM * HPI: D epression Screening: PHQ-9 L ittle interest or pleasure in doing things N ot at all, F eeling down, depressed, or hopeless N ot at all, T rouble falling or staying asleep, or sleeping too much N ot at all, F eeling tired or having little energy N ot at all, P oor appetite or overeating N ot at all, F eeling bad about yourself or that you are a failure, or have let yourself or your family down N ot at all, T rouble concentrating on things, such as reading the newspaper or watching television N ot at all, M oving or speaking so slowly that other people could have noticed; or the opposite, being so fidgety or restless that you have been moving around a lot more than usual N ot at all, T houghts that you would be better off or of hurting yourself in some way N ot at all, T otal Score 0 . I nterpretation and Intervention D epression Screening Findings N egative, F ollow-Up for Depression : review of PHQ-9 found negative result, no follow-up needed. C ommunication Needs: Communication Needs D oes the patient have a hearing impairment N o, D oes the patient have a vision impairment? Y es, I f yes, what is the vision impairment? G lasses, D oes the patient have a cognition impairment? N o. F all Risk: History H ave you had any falls with injury in the past year? N o, H ave you had two or more falls in the past year? N o. S CARLOS Questions: SDOH Questions I n the past year have you been worried about losing housing? N o, I n the past year have you or any family members you live with been unable to get any of the following when it was really needed? Check all that apply: N one. S ymptom(s): patient is a 59 yo female here for annual visit with review of recent labs and follow up of chronic issues. * ROS: G eneral/Constitutional: Change in appetite d enies. C hills d enies. F ever d enies. O phthalmologic: Blurred vision d enies. D ischarge d enies. P ain d enies. E NT: Decreased hearing d enies. S ore throat d enies.?Swollen glands d enies. E ndocrine: Cold intolerance d enies. E xcessive thirst d enies. H eat intolerance d enies. W eight loss d enies. R espiratory: Cough d enies. S hortness of breath at rest d enies. S hortness of breath with exertion d enies. W heezing d enies. C ardiovascular: Chest pain at rest d enies. C hest pain with exertion?denies. I rregular heartbeat d enies. S hortness of breath d enies. ? G astrointestinal: Abdominal pain d enies. C hange in bowel habits d enies. D iarrhea d enies. N ausea d enies. R ectal bleeding d enies. V omiting d enies . G enitourinary: Blood in urine d enies. D ifficulty urinating d enies. F requent urination d enies. U rinary incontinence D enies. M usculoskeletal: Painful joints d enies. W eakness d enies. ? S kin: Dry skin d enies. I tching d enies. D enies?Mole(s), changes in moles, new moles or any lesions of concern. D enies P hotosensitivity. R george d enies. N eurologic: Dizziness d enies. F ainting d enies. H eadache?denies. * Medical History: * Surgical History: * Hospitalization/Major Diagno stic Procedure: * Family History: F ather: alive 82 yrs, diagnosed with Hypertension, Diabetes. M other: alive 78 yrs. 1 brother(s) . . FATHER-CVA- 2004 Mother-Healthy, Denies mental health/substance abuse family history, Denies mental health/substance abuse family history, No pertinent family medical history, No pertinent family medical history, Denies mental health/substance abuse family history. * Social History: T obacco Use: T obacco Use/Smoking P atient is a f ormer smoker, H ow long has it been since you last smoked? > 10 years, A dditional Findings: Tobacco Non-User F ormer smoker, currently using no form of tobacco. D rugs/Alcohol: A lcohol Screen D id you have a drink containing alcohol in the past year? Y es, H ow often did you have a drink containing alcohol in the past year? M onthly or less (1 point), H ow many drinks did you have on a typical day when you were drinking in the past year? 1 or 2 drinks (0 point), H ow often did you have 6 or more drinks on one occasion in the past year? N ever (0 point), P oints 1 , I nterpretation N egative. M iscellaneous: E xercise: yes, cardio walks sit ups. Home smoke detector use: yes. Marital status: . Occupation: weeks/months/years, works full-time. Pets: none. Travel outside of the [place]: no. * Medications: T akingAlbuterol Sulfate HFA 108 (90 Base) MCG/ACT Aerosol Solution USE 1 INHALATION EVERY 4 HOURS NEEDED Fluticasone-Salmeterol 100-50 MCG/ACT Aerosol Powder Breath Activated USE 1 INHALATION TWICE A DAY Atorvastatin Calcium 40 mg Tablet TAKE 1 TABLET DAILY Taking Albuterol Sulfate HFA 108 (90 Base) MCG/ACT Aerosol Solution USE 1 INHALATION EVERY 4 HOURS NEEDED Taking Fluticasone-Salmeterol 100-50 MCG/ACT Aerosol Powder Breath Activated USE 1 INHALATION TWICE A DAY Taking Atorvastatin Calcium 40 mg Tablet TAKE 1 TABLET DAILY Not-Taking/PRNClobetasol Propionate 0.05 % Cream 1 application to affected area Externally Twice a day Ventolin HFA 108 (90 Base) MCG/ACT Aerosol Solution use 2 inhalations every 4 to 6 hours as needed Inhalation every 4 hrs Breo Ellipta 200-25 MCG/INH Aerosol Powder Breath Activated 1 puff Inhalation Once a day Medication List reviewed and reconciled with the patientNot-Taking/PRN Clobetasol Propionate 0.05 % Cream 1 application to affected area Externally Twice a day Not-Taking/PRN Ventolin HFA 108 (90 Base) MCG/ACT Aerosol Solution use 2 inhalations every 4 to 6 hours as needed Inhalation every 4 hrs Not-Taking/PRN Breo Ellipta 200-25 MCG/INH Aerosol Powder Breath Activated 1 puff Inhalation Once a day Medication List reviewed and reconciled with the patient * Allergies: N .K.D.A.yes[Allergies Verified] Objective: * Vitals: H t: 63, Wt: 128, BMI:22.67, BP:104/56, Wt-k.06. * P ast Orders: L ab:Complete Blood Count Auto Diff (Order Date - 02/09/2025) (Collection Date & Time - 02/09/2025 07:42 AM) Value Reference Range White Blood Count 7.3 4.8-10.8 - X10*3/uL Red Blood Count 4.26 4.20-5.50 - X10*6/uL Hemoglobin 13.5 12.0-16.0 - g/dl Hematocrit 41.4 37.0-47.0 - % Mean Corpuscular Volume 97.2 80.0-98.0 - fL Mean Corpuscular Hemoglobin 31.7 27.0-33.0 - pg Mean Corpuscular HGB Conc 32.6 31.0-35.0 - g/ dl Red Cell Distribution Width 12.3 11.0-16.0 - % Platelet Count 247 160-400 - X10*3/uL Mean Platelet Volume 9.5 9.4-12.3 - fL Neutrophils Percent Auto 51.2 45-73 - % Imm Gran Pct Auto 1.0 H 0.0-0.4 - % Lymphocytes Percent Auto 32.0 20-40 - % Monocytes Percent Auto 9.3 2-11 - % Eosinophils Percent Auto 5.1 H 0-4 - % Basophils Percent Auto 1.4 0-2 - % NRBC Pct Auto 0.0 0.0-0.2 - /100WBC Neutrophils Absolute Auto 3.8 2.0-8.3 - x10* 3/uL Imm Gran Abs Auto 0.07 H 0.00-0.03 - X10*3/uL Lymphocytes Absolute Auto 2.3 1.2-4.9 - X10* 3/uL Monocytes Absolute Auto 0.7 0.1-1.2 - X10*3/ uL Eosinophils Absolute Auto 0.4 0.0-0.4 - X10* 3/uL Basophils Absolute Auto 0.1 0.0-0.2 - X10*3/ uL NRBC Abs Auto 0.000 0.0-0.012 - X10*3/uL L ab:Comprehensive [place]. Panel Fast (Order Date - 02/09/2025) (Collection Date & Time - 02/09/2025 07:42 AM) Value Reference Range Sodium 142 135-145 - mmol/L Bilirubin Total 0.7 0.0-1.0 - mg/dL Aspartate Amino Transferase 28 5-31 - U/L Alanine Aminotransferase 25 0-31 - U/L Total Protein 6.9 6.5-8.0 - g/dL Albumin Level 4.4 3.5-5.0 - g/dL Alkaline Phosphatase 111 39-117 - U/L Potassium 4.0 3.3-5.1 - mmol/L Chloride 108 96-108 - mmol/L Carbon Dioxide 28 22-29 - mmol/L Anion Gap 10 L 12-20 - Blood Urea Nitrogen 21 H 9-16 - mg/dL Creatinine 0.69 0.5-1.4 - mg/dL Estimated Glomerular Filt Rate > 60 - Glucose Fasting 94 60-99 - mg/dL Calcium 9.4 8.4-10.2 - mg/dL L ab:Lipid Panel (Order Date - 02/09/2025) (Collection Date & Time - 02/09/2025 07:42 AM) Value Reference Range Triglycerides 69 <150 - mg/dL Cholesterol 207 H <200 - mg/dL LDL Cholesterol Calculated 127 H <100 - mg/dL HDL Cholesterol 67 >40 - mg/dL L ab:UA ClnCatch+Micro w/rflx Cult (Order Date - 02/09/2025) (Collection Date & Time - 02/09/2025 07:49 AM) Value Reference Range Color Urine Yellow - Appearance Urine Clear - PH 6.5 5.0-9.0 - Glucose Urine UA Negative Negative - mg/dL Urine Blood Negative Negative - Specific [place] - Urine 1.020 1.005-1.025 - Urine Protein Negative Neg-Trace - mg/dL Urine Ketones Negative Negative - mg/dL Nitrite Urine Negative Negative - Leukocyte Esterase Urine Negative Negative - RBC Urine 0-2 0-2 - /HPF WBC Urine 0-5 0-5 - /HPF Squamous Epithelial Cell Urine 0-2 0-2 - /HP F Bacteria Urine None Seen None Seen - Hyaline Casts Urine 0-2 0-2 - /LPF * Examination: G eneral Examination: GENERAL APPEARANCE: w ell developed, well nourished, in no acute distress. HEAD: n ormocephalic, atraumatic. EYES: p upils equal, round, reactive to light and accommodation, sclera non-icteric. EARS: n ormal. ORAL CAVITY: m ucosa moist. THROAT: c lear. NECK/THYROID: n tre supple, full range of motion, no cervical lymphadenopathy, no bruits. SKIN: w arm and dry, no suspicious lesions. HEART: r egular rate and rhythm, S1, S2 normal, no murmurs.? LUNGS: c lear to auscultation bilaterally. BREASTS: N o mass, no lump. ABDOMEN: s oft, nontender, nondistended, bowel sounds present, normal, no organomegaly , no masses palpable. RECTAL EXAM: s tool guaiac negative, no masses palpable.? FEMALE GENITOURINARY: a dnexa nontender, non-palpable ovaries. EXTREMITIES: n o clubbing, cyanosis, or edema. NEUROLOGIC: n onfocal, motor strength normal upper and lower extremities, sensory exam intact. Assessment: * Assessment: 1. A nnual physical exam - Z00.00 (Primary) 2 . P ure hypercholesterolemia - E78.00 3 . M ild intermittent asthma without complication - J45.20 ?4. C olon cancer screening - Z12.11 5 . D epression screening - Z13.31? Plan: * Treatment: 2. P ure hypercholesterolemia Continue Atorvastatin Calcium Tablet, 40 mg, TAKE 1 TABLET DAILY. Notes: running a little high, will continue current regiment and will continue to monitor ? 3. M ild intermittent asthma without complication Continue Albuterol Sulfate HFA Aerosol Solution, 108 (90 Base) MCG/ACT, USE 1 INHALATION EVERY 4 HOURS NEEDED; C ontinue Fluticasone-Salmeterol Aerosol Powder Breath Activated, 100-50 MCG/ACT, USE 1 INHALATION TWICE A DAY. Notes: doing well, will continue current regiment 4. C olon cancer screening Notes: guaiac negative 5. D epression screening Notes: negative screen * Procedure Codes: * Follow Up: 1 Year * * Sign off status: Completed true * Provider: Robert Casas MD Date: 0 02/16/2025 Generated for Hakan frazier/Alton/Senaititting on: 10/24/2024 07:43 AM EST History and Physical Notes * HPI (History of Present Illness) Category Sub-Category Detail Notes Category Not es Symptom(s) patient is a 59 yo female here for annual visit with review of recent labs and follow up of chronic issues Depression Screening PHQ-9 Little inte rest or pleasure in doing things: Not at all Feeling down, depressed, or hopeless: No t [...] patient have a vision impairmen t?: Yes If yes, what is the vision impairment?: Glasses Does the patient have a cognition impair ment?: No Examination Category Sub-Category Detail Notes Category Not es General Examination GENERAL APPEARANCE: well dev eloped, well nourished, in no acute distress HEAD: normocephalic, atrau matic EYES: pupils equal, round, reactive to light and accommodation, sclera non-icteric EARS: normal THROAT: clear NECK/THYROID: neck supple, [...] negativ e, no masses palpable FEMALE GENITOURINARY: adnexa nontender, non-palpable ovaries ORAL CAVITY: mucosa moist
--- OUTSIDE RECORDS SUMMARY | 2025-08-22 04:15 | XMS_ITS ---
Author Organization Darell Casas MD Address [address] [place] [phone] Care Team Providers Care Sewer Cleaner Name Role Phone Darell Casas Primary Care Provider REASON FOR VISIT FASTING LIPIDS Encounters Encounter Location Date Provider Diagnosis Darell Casas MD [address] [place] [phone] 08/22/2025 Darell Casas Pure hypercholestero lemia E78.00 Assessments Encounter Date Diagnosis (ICD Code) Assessment Notes Treatment Notes Treatment Clinical Notes Section Notes 08/22/2025 Pure hypercholesterolemia (ICD-10 - E78.00) Plan Of Treatment Pending Test Test Name Order Date Liver Panel 08/22/2025 Lipid Panel with Reflex 08/22/2025 Next Appt Details Provider Name:Darell enriquez, 02/12/2026 07:15:00 AM, [address] [place] [address], [address], [phone], Provider Name:Darell enriquez, 02/19/2026 01:00:00 PM, [address] [place] [address], [address], [phone], Progress Notes * Luz MELISSA MDOB:1964 (60 yo F)Acc No.[id number]:08/22/2025 Progress Note Patient: Luz SEARS Provider: Robert Casas MD :1965 A ge:60 Y S ex:Female Date:08/22/2025 Address:[address] [place] [address] Subjective: * Chief Complaints: * 1 . FASTING LIPIDS. * Medical History: Objective: * Vitals: Assessment: * Assessment: 1. P ure hypercholesterolemia - E78.00 (Primary) Plan: * Treatment: * * The named appointment provid er may or may not be the originator of this progress note, and it is not deemed complete until electronically signed by the appointment provider. Sign off status: Pending * Provider: Robert Casas MD Date: 1 10/22/2024 Generated for Hakan frazier/Alton/Senaititting on: 10/24/2024 07:43 AM EST
--- OUTSIDE RECORDS SUMMARY | 2025-08-24 07:43 | XMS_ITS | Clinical Summary ---
Author Organization [facility] Address [address] [place] [phone] Phone Care Team Providers Care Senior Dot Net Developer Name Role Phone Darell Casas MD Primary Care Provider Social History Tobacco Use Types Packs/Day Years Used Date Smoking Tobacco: Never Assessed Education Answer Date Recorded Are you interested in more education? Not on ezio e 02/13/2023 Are you concerned about learning? Not on file 02/13/2023 No 02/13/2023 No 02/13/2023 Digital Access Answer Date Recorded No 03/17/2023 No 03/17/2023 Reliable internet access at home? Not on file 03/17/2023 Device with a working camera? Not on file Comments Unknown Sex and Gender Information Value Date Recorded Sex Assigned at Not on file Legal Sex Female 8:51 AM EST Gender Identity Not on file Sexual Orientation Not on file Plan of Treatment Not on file Medical Devices Not on file Insurance [employer] [facility] HMO POS [employer] HMO POS [employer] HMO POS [employer] HMO POS C[employer] HMO POS Care Teams Senior Dot Net Developer Relationship Specialty Start Date End Date Darell Casas MD [address] [place] [address] [place] [address] PCP - General Internal Medicine 12/11/20 Additional Source Comments The information contained in this document represents components of the legal health record. It is not the complete legal health record.[facility]
--- OUTSIDE RECORDS SUMMARY | 2025-08-24 07:43 | XMS_ITS | Patient Health Record ---
Author Organization Darell Casas MD Address [address] [place], [place] [id number] Care Team Providers Care Clinical Staff Anesthesiologist Name Role Phone Darell Casas Primary Care Provider Allergies No Known Allergies Results Component Value Reference Range Notes MM tomosynthesis screening B I Reviewed date:12/13/2024 04:45:10 PM Interpretation: Performing Lab: Notes/Report: [address] [place] [address] Mammography Report Signed Patient: Luz Melissa MR#: [id number] : 1965 Acct:[id number] Age/Sex: 59 / F ADM Date: 12/06/24 Loc: HO.MAMMO Attending Dr: Darell Casas MD Ordering Physician: Darell Casas MD Results: 1Ne gative Date of Service: 12/06/24 Follow Up: 1 Year From Orig inal Mammogram Procedure(s): MM tomosynthesis screening BI Accession Number(s): [id number] cc: Darell Casas MD EXAMINATION: MM SCREENING [...] by: Tamy Carter DO 12/12/2024 03:31 PM EST Dictated By: Tamy Carter DO Signed By: <Electronically signed by Tamy Carter DO in OV> 12/12/24 1531 DD/ 1415 TD/TT: 12/06/24 1430 Hvac Manager: [facility] [address] [place] [address] Mammography Report Signed Patient: Luz Melissa MR#: [id number] : 1965 Acct:[id number] Age/Sex: 59 / F ADM Date: 12/06/24 Loc: HO.MAMMO Attending Dr: Darell Casas MD Ordering Physician: Darell Casas MD Results: 1Ne gative Date of Service: 12/06/24 Follow Up: 1 Year From Orig inal Mammogram Procedure(s): MM tomosynthesis screening BI Accession Number(s): [id number] cc: Darell Casas MD EXAMINATION: MM SCREENING [...] mammography screening. 1 year F/U This examination pearl uld not preclude the clinical evaluation of a suspicious palpable abnormality. This patient's information was entered into a reminder system with a target due date for their next mammogram. Electronically elías d by: Tamy Carter DO 12/12/2024 03:31 PM [facility] Dictated By: Tamy Carter DO Signed By: <Electronically signed by Tamy aCrter DO in OV> 12/12/24 1531 DD/ 1415 TD/TT: 12/06/24 1430 Hvac Manager: Complete Blood Count Auto Di ff Reviewed date:02/09/2025 04:57:07 PM Interpretation: Performing Lab:[facility], [address] [place] [phone] Notes/Report: White Blood Count 7.3 4.8-10.8 X10*3/uL Red Blood Count 4.26 4.20-5.50 X10*6/uL Hemoglobin 13.5 12.0-16.0 g/dl Hematocrit 41.4 37.0-47.0 % Mean Corpuscular Volume 97.2 80.0-98.0 fL Mean Corpuscular Hemoglobin 31.7 27.0-33.0 pg Mean Corpuscular HGB Conc 32.6 31.0-35.0 g/dl Red Cell Distribution Width 12.3 11.0-16.0 % Platelet Count 247 160-400 X10*3/uL Mean Platelet Volume 9.5 9.4-12.3 fL Neutrophils Percent Auto 51.2 45-73 % Imm Gran Pct Auto 1.0 0.0-0.4 % Lymphocytes Percent Auto 32.0 20-40 % Monocytes Percent Auto 9.3 2-11 % Eosinophils Percent Auto 5.1 0-4 % Basophils Percent Auto 1.4 0-2 % NRBC Pct Auto 0.0 0.0-0.2 /100WBC Neutrophils Absolute Auto 3.8 2.0-8.3 x10*3/u L Imm Gran Abs Auto 0.07 0.00-0.03 X10*3/uL Lymphocytes Absolute Auto 2.3 1.2-4.9 X10*3/u L Monocytes Absolute Auto 0.7 0.1-1.2 X10*3/uL Eosinophils Absolute Auto 0.4 0.0-0.4 X10*3/u L Basophils Absolute Auto 0.1 0.0-0.2 X10*3/uL NRBC Abs Auto 0.000 0.0-0.012 X10*3/uL Comprehensive [place]. Panel Fa st Reviewed date:02/10/2025 10:29:04 AM Interpretation: Performing Lab:[facility], [address] [place] [phone] Notes/Report: Sodium 142 135-145 mmol/L Potassium 4.0 3.3-5.1 mmol/L Chloride 108 96-108 mmol/L Carbon Dioxide 28 22-29 mmol/L Anion Gap 10 12-20 Blood Urea Nitrogen 21 9-16 mg/dL Creatinine 0.69 0.5-1.4 mg/dL Estimated Glomerular Filt Rate > 60 Chronic Kidney Disease: Estimated GFR < 60 mL/min/1.73m2 Severe Kidney Disease: Estimated GFR < 15 mL/min/1.73m2 Glucose Fasting 94 60-99 mg/dL Calcium 9.4 8.4-10.2 mg/dL Bilirubin Total 0.7 0.0-1.0 mg/dL Aspartate Amino Transferase 28 5-31 U/L Alanine Aminotransferase 25 0-31 U/L Total Protein 6.9 6.5-8.0 g/dL Albumin Level 4.4 3.5-5.0 g/dL Alkaline Phosphatase 111 39-117 U/L Lipid Panel Reviewed date:02/09/2025 12:47:15 PM Interpretation: Performing Lab:[facility], [address] [place] [phone] Notes/Report: Triglycerides 69 <150 mg/dL Desirable Triglyceride: less than 150 mg/dL Borderline High Triglyceride 150-199 mg/dL High Triglyceride: 200-499 mg/dL Very High Triglyceride: greater than or equal to 5OO mg/dL Cholesterol 207 <200 mg/dL Desirable Cholesterol: less than 200 mg/dL Borderline High Cholesterol: 200-239 mg/dL High Cholesterol: greater than 239 mg/dL LDL Cholesterol Calculated 127 <100 mg/dL Desirable LDL: less than 100 mg/dL Near Optimal/Above Optimal LDL: 110-129 mg/dL Borderline High LDL: 130-159 mg/dL High LDL: 160-189 mg/dL Very High LDL: greater than or equal to 190 mg/dL HDL Cholesterol 67 >40 mg/dL Desirable HDL: greater than 40 mg/dL Note: This HDL assay may give artificially low results in patients with liver disease. UA ClnCatch+Micro w/rflx Cul t Reviewed date:02/09/2025 05:07:14 PM Interpretation: Performing Lab:[facility], [address] [place] [phone] Notes/Report: [id number] Urine, Clean Catch Color Urine Yellow Appearance Urine Clear PH 6.5 5.0-9.0 Glucose Urine UA Negative Negative mg/dL Urine Blood Negative Negative Specific [place] - Urine 1.020 1.005-1.025 Urine Protein Negative Neg-Trace mg/dL Urine [...] USE 1 INHALATION TWICE A DAY Active Albuterol Sulfate HFA 108 (90 Base) MCG/ACT USE 1 INHALATION EVERY 4 HOURS NEEDED Active Clobetasol Propionate 0.05 % 1 application [...] every 4 hrs for 90 days Not-Taking Immunizations Vaccine Route Administration Date Status [...] W/U Status Risk Notes Problem Pure hypercholesterolemia (701840092) Pure hypercholesterolemia (E78.0) Active confirmed Problem 89216621 Lymphocytosis (D72.820) Active confirmed Problem 287272235 Mild intermitten t asthma without complication (J45.20) Active confirmed Problem 919089107 History of hemat uria (Z87.448) Active confirmed Problem 970573252 Pure hypercholesterolemia (E78.00) Active confirmed Problem 58441677 Elevated cholest margaret (E78.00) Active confirmed Problem 695578129 Elevated serum cholesterol (E78.9) Active confirmed Vital Signs Blood pressure diastolic 56 mm Hg 02/16/2025 Height 63 in 02/16/2025 Blood pressure systolic 104 mm Hg 02/16/2025 Weight 128 lbs 02/16/2025 BMI 22.67 kg/m2 02/16/2025 Encounters Encounter Location Date Provider Diagnosis Darell Casas MD [address] [place], [place] [phone] 02/16/2025 Darell Casas Annual physical exam Z00.00 [...] Date Electrocardiogram (EKG) 09/18/2016 Electrocardiogram (EKG) 10/21/2018 Liver Panel 02/16/2025 Lipid Panel 02/16/2025 Next Appt Details Provider Name:Darell enriquez, 02/12/2026 07:15:00 AM, [address] [place] [address], [address], [place], [place], [phone], Provider Name:Darell Vargas ier, 02/19/2026 01:00:00 PM, [address] [place] [address], [address], [place], [place], [id number], Insurance Providers Payer Name Payer Address Payer Phone Subscriber Number Group Number Insured Name Patient Relationship to Insured Coverage Start Date Coverage End Date [employer]NY ROSA [address] [place] [phone] [id number] Luz Melissa Self - patient is the insured Medical (General) History Medical History History ICD Code 06/16/13 - pelvic exam & mammo 6 months a go; pap 11/2013 Dr. Karen Dasilva 01/2013 - cysto; negative 10/2018 - refused colonoscopy 2021 refuse d colonoscopy
[2025-08-24 11:51] LABS: Alanine Aminotransferase 24 U/L (0-31); Albumin Level 4.6 g/dL (3.5-5.0); Alkaline Phosphatase 121 U/L (39-117); Aspartate Amino Transferase 31 U/L (5-31); Cholesterol 199 mg/dL (<200); HDL Cholesterol 71 mg/dL (>40); Total Protein 7.0 g/dL (6.5-8.0); Triglycerides 84 mg/dL (<150)
== END 2025-08-24 07:40 | disposition home or self-care (01) ==
LOC: HO.WFDLDS 07:39
PROVIDERS: Visit Provider Internal Medicine
DX: E78.00 Pure hypercholesterolemia, unspecified (principal)
CPT/HCPCS: 36415; 80061; 80076